=== PATIENT | male | born 1965 | race Caucasian/White ===

== ENCOUNTER 2016-03-12 15:28 | Emergency (ER) | payer OTHER, MEDICAID ==
[~2016-03-12] VITALS: Ht 190.5 cm; Wt 108.9 kg
[~2016-03-12 15:28] MED LIST: ALPR1TAB2; ASPI-231 PO; LEVE500T22 PO; MECL12.554 PO; MET50T PO; METF-312 PO; NOR10T PO; PANT40TA2 PO; ZOLP10TA PO
[2016-03-12 15:42] VITALS: BP 135/79
[2016-03-12 16:15] LABS: Basophils # (auto) 0.1 uL; Eosinophils # (auto) 0.3 uL; Eosinophils % (auto) 4.2 % (0.0-7.0); Hemoglobin 12.9 g/dL (13.5-17.5); Lymphocytes # (auto) 1.5 uL; Lymphocytes % (auto) 24.4 % (10.0-50.0); Mean Corpuscular Hemoglobin 27.4 pg (28.0-32.0); Mean Corpuscular Hgb Conc. 32.2 g/dL (32.0-36.0); Mean Corpuscular Volume 85.1 fL (80.0-100.0); Mean Platelet Volume 7.9 fL (7.4-10.4); Monocytes # (auto) 0.5 uL; Monocytes % (auto) 7.9 % (0.0-12.0); Neutrophils # (auto) 3.9 uL; Neutrophils % (auto) 62.5 % (37.0-80.0); Platelet Count (auto) 414 10^3/uL (140-450); Red Cell Distribution Width 16.5 % (11.6-16.0); White Blood Cell 6.3 10^3/uL (4.4-10.8)
[2016-03-12 16:22] LABS: Albumin 3.6 g/dL (3.4-5.0); BUN/Creatinine Ratio 11.4; Calcium 8.3 mg/dL (8.5-10.1); Potassium 4.4 mmol/L (3.5-5.1)
[2016-03-12 16:25] LABS: Bilirubin, Total 0.2 mg/dL (0.2-1.0); Total Protein 8.9 g/dL (6.4-8.2)
== END 2016-03-12 22:30 | disposition left against medical advice (07) ==
LOC: EDUNIT# 15:30 → ER 15:30
DX: R51 Headache (principal); Z53.21 Procedure and treatment not carried out due to patient leaving prior to being seen by health care provider
CPT/HCPCS: 36415; 70450; 80053; 84484; 85025; 85049

== ENCOUNTER 2016-03-13 10:13 | Inpatient (IN) | payer OTHER, MEDICAID ==
[~2016-03-13] VITALS: Ht 190.5 cm; Wt 112.4 kg
[2016-03-13] MEDS ORDERED: ONDANSETRON HCL 4 MG/2 ML VIAL IV ONE ×2 (13:30→14:15)
[2016-03-13 14:10] LABS: Basophils # (auto) 0.1 uL; Basophils % (auto) 1.4 % (0.0-2.0); Eosinophils # (auto) 0.3 uL; Eosinophils % (auto) 5.2 % (0.0-7.0); Hematocrit 45.3 % (41.0-53.0); Hemoglobin 14.3 g/dL (13.5-17.5); Lymphocytes # (auto) 1.7 uL; Lymphocytes % (auto) 26.5 % (10.0-50.0); Mean Corpuscular Hemoglobin 27.3 pg (28.0-32.0); Mean Corpuscular Hgb Conc. 31.5 g/dL (32.0-36.0); Mean Corpuscular Volume 86.5 fL (80.0-100.0); Monocytes # (auto) 0.5 uL; Monocytes % (auto) 7.4 % (0.0-12.0); Neutrophils # (auto) 3.7 uL; Neutrophils % (auto) 59.5 % (37.0-80.0); Platelet Count (auto) 388 10^3/uL (140-450); Red Cell Distribution Width 15.1 % (11.6-16.0); White Blood Cell 6.3 10^3/uL (4.4-10.8)
[2016-03-13] MEDS ORDERED: MORPHINE SULFATE 4 MG/ML SYRG IV ONE (14:15)
[2016-03-13 14:58] LABS: Albumin 4.2 g/dL (3.4-5.0); BUN/Creatinine Ratio 16.9; Bilirubin, Total 0.3 mg/dL (0.2-1.0); Calcium 9.3 mg/dL (8.5-10.1); Magnesium 2.4 mg/dL (1.6-2.6); Potassium 4.8 mmol/L (3.5-5.1); Total Protein 9.8 g/dL (6.4-8.2)
[2016-03-13] MEDS ORDERED: MORPHINE SULF INJ 2 MG/ML SYRINGE 1ML IV PRN (16:00)
[2016-03-13] MEDS ORDERED: ACETAMINOPHEN 500 MG TAB PO PRN (16:00)
[2016-03-13] MEDS ORDERED: DEXTROSE (50%) 50ML SYRG IV PRN (16:00)
[2016-03-13] MEDS ORDERED: HYDROcodone-ACET 5/325MG TAB PO PRN (16:00)
[2016-03-13] MEDS ORDERED: SODIUM CHLORIDE 0.9% 1,000 ML IV ONE (16:00)
[2016-03-13] MEDS ORDERED: ALBUTEROL SULF 2.5 MG/0.5ML(0.5%) NEB SOLN NEB PRN (16:00)
[2016-03-13] MEDS ORDERED: LORazepam 0.5 MG TAB PO PRN (16:00)
[2016-03-13] MEDS ORDERED: TEMAZEPAM 15 MG CAP PO PRN (16:00)
[2016-03-13] MEDS ORDERED: LACTULOSE 20Gm/30ML SOLN PO PRN (16:00)
[2016-03-13] MEDS ORDERED: NITROGLYCERIN 0.4 MG SL TAB SL PRN (16:00)
[2016-03-13 16:33] LABS: INR 1.2 (0.9-1.15); Partial Thromboplastin Time 28.3 sec (22.64-33.71); Prothrombin Time 12.4 sec (9.37-12.3)
[2016-03-13 16:42] LABS: Temperature: 22.5 C (20.0-25.0)
[2016-03-13] MEDS: ACCU-CHEK COMFORT CURVE STRIP VI SCH ×2 (17:00→22:10)
[2016-03-13] MEDS: SODIUM CHLORIDE 0.9% 1,000 ML IV SCH (17:00)
[2016-03-13] MEDS: InsuLIN REG 1unit/0.01ml Soln (100units/ml) SC SCH ×2 (17:00→22:19)
[2016-03-13 18:00] VITALS: BP 123/72
[2016-03-13] MEDS: MORPHINE SULF INJ 2 MG/ML SYRINGE 1ML IV PRN (18:44)
[2016-03-13] MEDS: PROMETHAZINE HCL 25 MG/ML 1ML IV PRN (18:48)
[2016-03-13 21:23] VITALS: BP 123/72
[2016-03-13 21:48] VITALS: BP 112/59
[2016-03-13] MEDS ORDERED: LACOSAMIDE 150 MG PO SCH (22:00)
[2016-03-13] MEDS: AMITRIPTYLINE HCL 25 MG TAB PO SCH (22:20)
[2016-03-13] MEDS: traZODone HCL 50 MG TAB PO SCH (22:21)
[2016-03-13] MEDS: DILTIAZEM HCL 120MG ER CAP PO SCH (23:44)
[2016-03-13] MEDS: LEVETIRACETAM 500 MG TAB PO SCH (23:45)
[2016-03-13] MEDS: OXYCODONE W/ ACETAMINOPHEN 5/325MG TABLET PO SCH (23:45)
[2016-03-13] MEDS: CARVEDILOL 12.5 MG TAB PO SCH (23:46)
[2016-03-13] MEDS: hydrALAZINE HCL 25 MG TAB PO SCH (23:47)
[2016-03-13] MEDS: PREGABALIN 25 MG CAP PO SCH (23:47)
[2016-03-14] MEDS: SODIUM CHLORIDE 0.9% 1,000 ML IV SCH ×3 (01:07→17:14)
[2016-03-14 05:40] VITALS: BP 104/63
[2016-03-14] MEDS: PREGABALIN 25 MG CAP PO SCH ×3 (06:00→22:40)
[2016-03-14] MEDS: InsuLIN REG 1unit/0.01ml Soln (100units/ml) SC SCH ×4 (06:11→22:42)
[2016-03-14] MEDS: OXYCODONE W/ ACETAMINOPHEN 5/325MG TABLET PO SCH ×3 (06:19→22:41)
[2016-03-14] MEDS: hydrALAZINE HCL 25 MG TAB PO SCH ×3 (06:20→22:33)
[2016-03-14 06:36] LABS: Basophils # (auto) 0 uL; Basophils % (auto) 0.4 % (0.0-2.0); Eosinophils # (auto) 0.3 uL; Eosinophils % (auto) 5.5 % (0.0-7.0); Hematocrit 37.1 % (41.0-53.0); Hemoglobin 12.2 g/dL (13.5-17.5); Lymphocytes % (auto) 31.6 % (10.0-50.0); Mean Corpuscular Hemoglobin 28.3 pg (28.0-32.0); Mean Corpuscular Hgb Conc. 32.8 g/dL (32.0-36.0); Mean Corpuscular Volume 86.2 fL (80.0-100.0); Mean Platelet Volume 8.2 fL (7.4-10.4); Monocytes # (auto) 0.6 uL; Monocytes % (auto) 9.4 % (0.0-12.0); Neutrophils # (auto) 3.3 uL; Neutrophils % (auto) 53.1 % (37.0-80.0); Platelet Count (auto) 307 10^3/uL (140-450); Red Cell Distribution Width 14.8 % (11.6-16.0); White Blood Cell 6.2 10^3/uL (4.4-10.8)
[2016-03-14] MEDS: ACCU-CHEK COMFORT CURVE STRIP VI SCH ×4 (06:40→22:43)
[2016-03-14] MEDS: INSULIN DETEMIR(LEVEMIR) 1unit/0.01ml Soln (100units/ml) SC SCH (06:40)
[2016-03-14 06:50] LABS: Albumin 3.1 g/dL (3.4-5.0); BUN/Creatinine Ratio 22.7; Bilirubin, Total 0.2 mg/dL (0.2-1.0); Calcium 8.6 mg/dL (8.5-10.1); Potassium 4.3 mmol/L (3.5-5.1); Total Protein 7.3 g/dL (6.4-8.2)
[2016-03-14] MEDS ORDERED: INSULIN GLARGINE 45 UNIT SC SCH (07:00)
[2016-03-14 09:00] VITALS: BP 101/58
[2016-03-14] MEDS: MORPHINE SULF INJ 2 MG/ML SYRINGE 1ML IV PRN ×3 (09:30→18:23)
[2016-03-14] MEDS: PROMETHAZINE HCL 25 MG/ML 1ML IV PRN ×3 (09:30→18:23)
[2016-03-14] MEDS: DILTIAZEM HCL 120MG ER CAP PO SCH ×2 (10:00→22:33)
[2016-03-14] MEDS ORDERED: PATIENTS OWN MEDICATION (Benazepril Hcl 1 TAB) PO SCH ×2 (10:00)
[2016-03-14] MEDS ORDERED: LORazepam 2MG/ML-1ML VIAL IV PRN (11:15)
[2016-03-14] MEDS: BENAZEPRIL HCL 10 MG TAB PO SCH (11:57)
[2016-03-14] MEDS: CARVEDILOL 12.5 MG TAB PO SCH ×2 (11:57→22:00)
[2016-03-14] MEDS: LEVETIRACETAM 500 MG TAB PO SCH ×2 (11:57→22:35)
[2016-03-14] MEDS: LACOSAMIDE 50 MG TAB PO SCH ×2 (11:58→22:41)
[2016-03-14 13:42] VITALS: BP 113/68
[2016-03-14 16:59] VITALS: BP 112/62
[2016-03-14] MEDS ORDERED: GABAPENTIN 500 MG PO SCH (18:00)
[2016-03-14 22:00] VITALS: BP 119/65
[2016-03-14] MEDS ORDERED: GABAPENTIN 100 MG CAP PO SCH (22:00)
[2016-03-14] MEDS: AMITRIPTYLINE HCL 25 MG TAB PO SCH (22:00)
[2016-03-14] MEDS: traZODone HCL 50 MG TAB PO SCH (22:34)
[2016-03-14] MEDS: ALPRAZolam 0.5 MG TAB PO PRN (22:44)
[2016-03-15] MEDS: SODIUM CHLORIDE 0.9% 1,000 ML IV SCH ×2 (02:35→10:40)
[2016-03-15 05:00] VITALS: BP 103/57
[2016-03-15] MEDS: hydrALAZINE HCL 25 MG TAB PO SCH (06:00)
[2016-03-15] MEDS: INSULIN DETEMIR(LEVEMIR) 1unit/0.01ml Soln (100units/ml) SC SCH (06:15)
[2016-03-15] MEDS: ACCU-CHEK COMFORT CURVE STRIP VI SCH ×2 (06:15→12:16)
[2016-03-15] MEDS: InsuLIN REG 1unit/0.01ml Soln (100units/ml) SC SCH ×2 (06:16→11:30)
[2016-03-15] MEDS: OXYCODONE W/ ACETAMINOPHEN 5/325MG TABLET PO SCH (06:22)
[2016-03-15] MEDS: PREGABALIN 25 MG CAP PO SCH (06:22)
[2016-03-15] MEDS: PROMETHAZINE HCL 25 MG/ML 1ML IV PRN ×2 (08:01→12:17)
[2016-03-15] MEDS: MORPHINE SULF INJ 2 MG/ML SYRINGE 1ML IV PRN ×2 (08:01→12:17)
[2016-03-15 09:00] VITALS: BP 114/59
[2016-03-15] MEDS: DILTIAZEM HCL 120MG ER CAP PO SCH (10:00)
[2016-03-15] MEDS: BENAZEPRIL HCL 10 MG TAB PO SCH (10:38)
[2016-03-15] MEDS: ALPRAZolam 0.5 MG TAB PO PRN (10:38)
[2016-03-15] MEDS: LEVETIRACETAM 500 MG TAB PO SCH (10:38)
[2016-03-15] MEDS: LACOSAMIDE 50 MG TAB PO SCH (10:38)
[2016-03-15] MEDS: CARVEDILOL 12.5 MG TAB PO SCH (10:39)
[2016-03-15 13:00] VITALS: BP 118/58
== END 2016-03-15 13:55 | disposition home or self-care (01) | DRG 103 ==
LOC: ER 10:25 → TELE 10:26 → EDUNIT# 10:26 → TELE-CENTR 17:39 → CENTRAL 03-14 13:15
PROVIDERS: ADMIT Internal Medicine; ATTEND Internal Medicine
DX: R51 Headache (principal); E11.9 Type 2 diabetes mellitus without complications; E78.5 Hyperlipidemia, unspecified; E66.01 Morbid (severe) obesity due to excess calories; F41.9 Anxiety disorder, unspecified; G40.409 Other generalized epilepsy and epileptic syndromes, not intractable, without status epilepticus; I10 Essential (primary) hypertension; I67.2 Cerebral atherosclerosis; J44.9 Chronic obstructive pulmonary disease, unspecified; Z98.890 Other specified postprocedural states; Z86.69 Personal history of other diseases of the nervous system and sense organs; M10.9 Gout, unspecified; I25.2 Old myocardial infarction; Z82.49 Family history of ischemic heart disease and other diseases of the circulatory system; Z87.442 Personal history of urinary calculi; Z68.31 Body mass index [BMI] 31.0-31.9, adult
CPT/HCPCS: 36415; 70450; 71010; 80053; 80061; 82550; 82607; 82746; 82962; 83036; 83735; 84443; 84484; 85025; 85049; 85610; 85652; 85730; 87081; 93005; 96361; 96374; 96375; J1815; J2405

== ENCOUNTER 2016-04-09 14:42 | Emergency (ER) | payer OTHER, MEDICAID ==
[~2016-04-09] VITALS: Ht 190.5 cm; Wt 108.9 kg
[2016-04-09 15:04] VITALS: BP 109/71
[2016-04-09 15:23] LABS: Basophils # (auto) 0.1 uL; Eosinophils # (auto) 0.4 uL; Eosinophils % (auto) 5.7 % (0.0-7.0); Hematocrit 40.3 % (41.0-53.0); Hemoglobin 12.7 g/dL (13.5-17.5); Lymphocytes # (auto) 1.6 uL; Lymphocytes % (auto) 25.6 % (10.0-50.0); Mean Corpuscular Hemoglobin 27.1 pg (28.0-32.0); Mean Corpuscular Hgb Conc. 31.6 g/dL (32.0-36.0); Mean Platelet Volume 7.6 fL (7.4-10.4); Monocytes # (auto) 0.5 uL; Monocytes % (auto) 7.1 % (0.0-12.0); Neutrophils # (auto) 3.9 uL; Neutrophils % (auto) 60.6 % (37.0-80.0); Platelet Count (auto) 337 10^3/uL (140-450); Red Cell Distribution Width 16.6 % (11.6-16.0); White Blood Cell 6.4 10^3/uL (4.4-10.8)
[2016-04-09 15:43] LABS: Albumin 3.7 g/dL (3.4-5.0); BUN/Creatinine Ratio 13.4; Bilirubin, Total 0.3 mg/dL (0.2-1.0); Calcium 8.6 mg/dL (8.5-10.1); Potassium 4.3 mmol/L (3.5-5.1); Total Protein 8.4 g/dL (6.4-8.2)
[2016-04-13] MEDS ORDERED: KEP500T PO (11:10)
== END 2016-04-09 23:55 | disposition left against medical advice (07) ==
LOC: ER 14:42
DX: R56.9 Unspecified convulsions (principal); Z53.21 Procedure and treatment not carried out due to patient leaving prior to being seen by health care provider
CPT/HCPCS: 36415; 80053; 82962; 85025

== ENCOUNTER 2016-06-08 10:41 | Inpatient (IN) | payer OTHER, MEDICAID ==
[~2016-06-08] VITALS: Ht 188 cm; Wt 87.1 kg
[~2016-06-08 10:41] MED LIST changes: +KEP500T PO
[2016-06-08] MEDS ORDERED: SODIUM CHLORIDE 0.9% 1,000 ML IV ONE (11:03)
[2016-06-08] MEDS ORDERED: LEVETIRACETAM INJ 1,000 MG in SODIUM CHL 0.9% 100 ML IV ONE (11:15)
[2016-06-08 12:36] LABS: Basophils # (auto) 0 uL; Basophils % (auto) 0.4 % (0.0-2.0); Eosinophils # (auto) 0.2 uL; Eosinophils % (auto) 4.7 % (0.0-7.0); Hematocrit 36.9 % (41.0-53.0); Hemoglobin 12.1 g/dL (13.5-17.5); Lymphocytes # (auto) 1.3 uL; Mean Corpuscular Hgb Conc. 32.7 g/dL (32.0-36.0); Mean Corpuscular Volume 85.6 fL (80.0-100.0); Mean Platelet Volume 8.2 fL (7.4-10.4); Monocytes # (auto) 0.5 uL; Monocytes % (auto) 9.9 % (0.0-12.0); Neutrophils # (auto) 3.1 uL; Platelet Count (auto) 285 10^3/uL (140-450); Red Cell Distribution Width 15.8 % (11.6-16.0); White Blood Cell 5.2 10^3/uL (4.4-10.8)
[2016-06-08 12:52] LABS: Partial Thromboplastin Time 28.2 sec (22.64-33.71)
[2016-06-08 12:53] LABS: INR 1.26 (0.9-1.15); Prothrombin Time 13.6 sec (9.37-12.3)
[2016-06-08] MEDS ORDERED: KETOROLAC TROMETH 30 MG/ML 1ML VIAL IV ONE (13:00)
[2016-06-08] MEDS ORDERED: CARV25TA55 PO (13:10)
[2016-06-08] MEDS ORDERED: LACO150T PO (13:10)
[2016-06-08] MEDS ORDERED: LISI-646 PO (13:10)
[2016-06-08] MEDS ORDERED: GABA-494 PO (13:10)
[2016-06-08 13:13] LABS: B-Type Natriuretic Peptide 39.24 pg/mL (0-100)
[2016-06-08 13:17] LABS: Temperature: 22.9 C (20.0-25.0)
[2016-06-08 13:21] LABS: Albumin 3.2 g/dL (3.4-5.0); Alkaline Phosphatase 122 U/L (45-117); Anion Gap 11 (5-15); Aspartate Aminotransferase 29 U/L (15-37); BUN/Creatinine Ratio 19.2; Bilirubin, Total 0.5 mg/dL (0.2-1.0); Blood Urea Nitrogen 25 mg/dL (7-18); Calcium 8.9 mg/dL (8.5-10.1); Carbon Dioxide 22 mmol/L (21-32); Chloride 110 mmol/L (98-107); GFR African American 75 mL/min; GFR Non-African American 62 mL/min; Glucose 101 mg/dL (74-106); Magnesium 2.5 mg/dL (1.6-2.6); Potassium 4.3 mmol/L (3.5-5.1); Sodium 143 mmol/L (136-145); Total Protein 8.2 g/dL (6.4-8.2)
[2016-06-08] MEDS ORDERED: ALPRAZolam 0.5 MG TAB PO ONE (16:00)
[2016-06-08] MEDS ORDERED: HYDROmorphone HCL 2 MG/ML VL IV ONE (16:00)
[2016-06-08] MEDS ORDERED: DEXTROSE (50%) 50ML SYRG IV PRN (16:15)
[2016-06-08] MEDS ORDERED: ONDANSETRON HCL 4 MG/2 ML VIAL IV PRN (16:15)
[2016-06-08] MEDS ORDERED: MORPHINE SULF INJ 2 MG/ML SYRINGE 1ML IV PRN (16:15)
[2016-06-08] MEDS ORDERED: NITROGLYCERIN 0.4 MG SL TAB SL PRN (16:15)
[2016-06-08] MEDS ORDERED: ASPirin 81 mg TAB PO ONE (17:15)
[2016-06-08] MEDS ORDERED: GABAPENTIN 300 MG CAP PO ONE (17:15)
[2016-06-08] MEDS: InsuLIN REG 1unit/0.01ml Soln (100units/ml) SC SCH ×2 (17:53→22:00)
[2016-06-08] MEDS: ACCU-CHEK COMFORT CURVE STRIP VI SCH ×2 (17:54→22:24)
[2016-06-08] MEDS: MORPHINE SULF INJ 2 MG/ML SYRINGE 1ML IV PRN (20:08)
[2016-06-08] MEDS: LEVETIRACETAM 500 MG TAB PO SCH (22:20)
[2016-06-08] MEDS: CARVEDILOL 12.5 MG TAB PO SCH (22:20)
[2016-06-08] MEDS: GABAPENTIN 300 MG CAP PO SCH (22:21)
[2016-06-08] MEDS: LACOSAMIDE 50 MG TAB PO SCH (22:21)
[2016-06-08 22:52] VITALS: BP 125/68
[2016-06-08 23:09] VITALS: BP 125/68
[2016-06-08] MEDS: ALPRAZolam 0.5 MG TAB PO PRN (23:41)
[2016-06-09] MEDS: MORPHINE SULF INJ 2 MG/ML SYRINGE 1ML IV PRN ×5 (02:12→21:20)
[2016-06-09 05:06] VITALS: BP 114/59
[2016-06-09] MEDS: HYDROcodone-ACET 5/325MG TAB PO PRN ×2 (05:23→15:35)
[2016-06-09] MEDS: InsuLIN REG 1unit/0.01ml Soln (100units/ml) SC SCH ×4 (06:27→21:21)
[2016-06-09] MEDS: ACCU-CHEK COMFORT CURVE STRIP VI SCH ×4 (06:27→21:21)
[2016-06-09 09:00] VITALS: BP 131/76
[2016-06-09] MEDS: ASPirin 81 mg TAB PO SCH (10:32)
[2016-06-09] MEDS: CARVEDILOL 12.5 MG TAB PO SCH ×2 (10:33→21:21)
[2016-06-09] MEDS: LEVETIRACETAM 500 MG TAB PO SCH ×2 (10:33→21:21)
[2016-06-09] MEDS: LACOSAMIDE 50 MG TAB PO SCH ×2 (10:34→21:20)
[2016-06-09] MEDS: GABAPENTIN 300 MG CAP PO SCH ×2 (10:34→21:21)
[2016-06-09] MEDS: ALPRAZolam 0.5 MG TAB PO PRN ×2 (10:34→22:13)
[2016-06-09] MEDS ORDERED: MORPHINE SULFATE 4 MG/ML SYRG IV PRN (12:45)
[2016-06-09] MEDS: MUPIROCIN 2% OINT 22GM EACHNOSTRI SCH ×3 (13:07→21:21)
[2016-06-09 15:04] VITALS: BP 103/55
[2016-06-09 17:00] VITALS: BP 106/62
[2016-06-09] MEDS: Boost Glucose Control 8 Ounces PO SCH (17:04)
[2016-06-09] MEDS ORDERED: LORazepam 2MG/ML-1ML VIAL IV PRN (17:30)
[2016-06-09 20:00] VITALS: BP 136/82
[2016-06-09] MEDS: ZOLPIDEM TARTRATE 5 MG TAB PO PRN (22:13)
[2016-06-10] MEDS: MORPHINE SULF INJ 2 MG/ML SYRINGE 1ML IV PRN ×5 (01:05→18:55)
[2016-06-10 03:48] LABS: Urine RBC None Seen /hpf (0 - 3)
[2016-06-10 04:01] LABS: Urine Bilirubin Negative (Negative); Urine Blood Negative /uL (Negative); Urine Color Yellow (Yellow); Urine Glucose Normal (Normal); Urine Ketone Negative (Negative); Urine Nitrite Negative (Negative); Urine Sperm PRESENT /hpf (None Seen); Urine Squamous Epithelial Cell FEW /hpf (<5); Urine Urobilinogen Normal (Negative); Urine pH 5.5 (5.0-8.0)
[2016-06-10 05:12] VITALS: BP 128/78
[2016-06-10] MEDS: ALPRAZolam 0.5 MG TAB PO PRN ×2 (05:56→21:20)
[2016-06-10] MEDS: InsuLIN REG 1unit/0.01ml Soln (100units/ml) SC SCH ×4 (06:09→22:27)
[2016-06-10] MEDS: ACCU-CHEK COMFORT CURVE STRIP VI SCH ×4 (06:10→22:24)
[2016-06-10 07:11] LABS: Basophils # (auto) 0 uL; Basophils % (auto) 0.6 % (0.0-2.0); Eosinophils # (auto) 0.3 uL; Eosinophils % (auto) 6.1 % (0.0-7.0); Hematocrit 36.3 % (41.0-53.0); Lymphocytes # (auto) 1.4 uL; Lymphocytes % (auto) 27.7 % (10.0-50.0); Mean Corpuscular Hemoglobin 28.5 pg (28.0-32.0); Mean Corpuscular Hgb Conc. 33.2 g/dL (32.0-36.0); Mean Platelet Volume 8.3 fL (7.4-10.4); Monocytes # (auto) 0.6 uL; Monocytes % (auto) 11.5 % (0.0-12.0); Neutrophils # (auto) 2.8 uL; Neutrophils % (auto) 54.1 % (37.0-80.0); Platelet Count (auto) 295 10^3/uL (140-450); Red Cell Distribution Width 15.5 % (11.6-16.0); White Blood Cell 5.1 10^3/uL (4.4-10.8)
[2016-06-10 07:36] LABS: Albumin 3.1 g/dL (3.4-5.0); BUN/Creatinine Ratio 15.2; Bilirubin, Total 0.4 mg/dL (0.2-1.0); Calcium 8.5 mg/dL (8.5-10.1); Potassium 4.3 mmol/L (3.5-5.1); Total Protein 8.3 g/dL (6.4-8.2)
[2016-06-10] MEDS: Boost Glucose Control 8 Ounces PO SCH ×3 (08:00→18:00)
[2016-06-10 09:10] VITALS: BP 144/78
[2016-06-10] MEDS: LACOSAMIDE 50 MG TAB PO SCH ×2 (09:47→21:20)
[2016-06-10] MEDS: LEVETIRACETAM 500 MG TAB PO SCH ×2 (09:47→21:19)
[2016-06-10] MEDS: ASPirin 81 mg TAB PO SCH (09:48)
[2016-06-10] MEDS: GABAPENTIN 300 MG CAP PO SCH ×2 (09:48→21:20)
[2016-06-10] MEDS: CARVEDILOL 12.5 MG TAB PO SCH ×2 (09:48→21:19)
[2016-06-10] MEDS: MUPIROCIN 2% OINT 22GM EACHNOSTRI SCH ×2 (09:49→21:19)
[2016-06-10 12:32] VITALS: BP 140/72
[2016-06-10 16:42] VITALS: BP 132/70
[2016-06-10 20:00] VITALS: BP 126/74
[2016-06-10 21:05] VITALS: BP 126/74
[2016-06-10] MEDS: ZOLPIDEM TARTRATE 5 MG TAB PO PRN (21:20)
[2016-06-11] MEDS: MORPHINE SULF INJ 2 MG/ML SYRINGE 1ML IV PRN ×3 (00:44→15:19)
[2016-06-11 05:09] VITALS: BP 141/92
[2016-06-11] MEDS: InsuLIN REG 1unit/0.01ml Soln (100units/ml) SC SCH ×3 (06:16→17:00)
[2016-06-11] MEDS: ALPRAZolam 0.5 MG TAB PO PRN ×2 (06:16→16:36)
[2016-06-11] MEDS: ACCU-CHEK COMFORT CURVE STRIP VI SCH ×3 (06:16→17:00)
[2016-06-11] MEDS: Boost Glucose Control 8 Ounces PO SCH ×3 (08:00→18:18)
[2016-06-11 08:38] VITALS: BP 151/90
[2016-06-11] MEDS: LEVETIRACETAM 500 MG TAB PO SCH (10:27)
[2016-06-11] MEDS: GABAPENTIN 300 MG CAP PO SCH (10:27)
[2016-06-11] MEDS: CARVEDILOL 12.5 MG TAB PO SCH (10:28)
[2016-06-11] MEDS: ASPirin 81 mg TAB PO SCH (10:28)
[2016-06-11] MEDS: LACOSAMIDE 50 MG TAB PO SCH (10:28)
[2016-06-11] MEDS: MUPIROCIN 2% OINT 22GM EACHNOSTRI SCH (10:29)
[2016-06-11 12:54] VITALS: BP 141/98
[2016-06-11 17:11] VITALS: BP 127/71
== END 2016-06-11 18:15 | DRG 101 ==
LOC: EDBD 10:41 → ER 10:42 → TELE 10:43 → EAST 19:32 → TELE-EAST 06-10 00:16
PROVIDERS: ADMIT Internal Medicine; ATTEND Internal Medicine
DX: G40.409 Other generalized epilepsy and epileptic syndromes, not intractable, without status epilepticus (principal); J44.1 Chronic obstructive pulmonary disease with (acute) exacerbation; F41.9 Anxiety disorder, unspecified; R32 Unspecified urinary incontinence; E11.42 Type 2 diabetes mellitus with diabetic polyneuropathy; R26.89 Other abnormalities of gait and mobility; I50.9 Heart failure, unspecified; I11.0 Hypertensive heart disease with heart failure; E78.5 Hyperlipidemia, unspecified; Z82.49 Family history of ischemic heart disease and other diseases of the circulatory system; Z83.3 Family history of diabetes mellitus; Z80.3 Family history of malignant neoplasm of breast; Z90.49 Acquired absence of other specified parts of digestive tract; Z88.2 Allergy status to sulfonamides; Z88.8 Allergy status to other drugs, medicaments and biological substances
CPT/HCPCS: 36415; 70450; 71010; 80053; 80320; 81001; 82962; 83735; 83880; 84484; 85025; 85610; 85730; 87081; 93005; 96365; 96375; 97001; 99291; G0434; J1815; J1885

== ENCOUNTER 2016-08-01 08:41 | Inpatient (IN) | payer OTHER, MEDICAID ==
[~2016-08-01] VITALS: Ht 182.9 cm; Wt 112.0 kg
[~2016-08-01 08:41] MED LIST changes: +BACL10TA PO; +CARV25TA55 PO; +GABA-494 PO; +LACO150T PO; -LEVE500T22 PO; +LISI-646 PO; -MECL12.554 PO; -METF-312 PO; +METF-370 PO; -PANT40TA2 PO
[2016-08-01 09:19] LABS: Basophils # (auto) 0 uL; Basophils % (auto) 0.4 % (0.0-2.0); Eosinophils # (auto) 0.3 uL; Eosinophils % (auto) 2.6 % (0.0-7.0); Hemoglobin 13.3 g/dL (13.5-17.5); Lymphocytes # (auto) 1.8 uL; Lymphocytes % (auto) 15.4 % (10.0-50.0); Mean Corpuscular Hemoglobin 29.9 pg (28.0-32.0); Mean Corpuscular Hgb Conc. 33.3 g/dL (32.0-36.0); Mean Corpuscular Volume 89.5 fL (80.0-100.0); Mean Platelet Volume 8.3 fL (7.4-10.4); Monocytes # (auto) 1.2 uL; Monocytes % (auto) 10.5 % (0.0-12.0); Neutrophils # (auto) 8.4 uL; Neutrophils % (auto) 71.1 % (37.0-80.0); Platelet Count (auto) 346 10^3/uL (140-450); Red Cell Distribution Width 16.7 % (11.6-16.0); White Blood Cell 11.8 10^3/uL (4.4-10.8)
[2016-08-01 09:45] LABS: Albumin 3.2 g/dL (3.4-5.0); Alkaline Phosphatase 132 U/L (45-117); Anion Gap 12 (5-15); Aspartate Aminotransferase 16 U/L (15-37); BUN/Creatinine Ratio 8.4; Bilirubin, Total 0.7 mg/dL (0.2-1.0); Blood Urea Nitrogen 46 mg/dL (7-18); Calcium 8.2 mg/dL (8.5-10.1); Carbon Dioxide 20 mmol/L (21-32); Chloride 105 mmol/L (98-107); GFR African American 14 mL/min; GFR Non-African American 12 mL/min; Glucose 118 mg/dL (74-106); Potassium 4.8 mmol/L (3.5-5.1); Sodium 137 mmol/L (136-145); Total Protein 7.8 g/dL (6.4-8.2)
[2016-08-01] MEDS ORDERED: LORazepam 2MG/ML-1ML VIAL IV ONE ×2 (09:45→10:15)
[2016-08-01] MEDS ORDERED: metroNIDAZOLE 500MG/100ML 100 ML IV ONE (10:00)
[2016-08-01] MEDS ORDERED: cefTRIAXone 1GM/50ML D5W 50 ML IV ONE (10:00)
[2016-08-01 10:01] LABS: Urine Blood Negative /uL (Negative); Urine Ca Oxalate Crystal FEW (None Seen); Urine Color Yellow (Yellow); Urine Glucose Normal (Normal); Urine Ketone Negative (Negative); Urine Nitrite Negative (Negative); Urine RBC 2 /hpf (0 - 3)
[2016-08-01] MEDS ORDERED: SODIUM CHLORIDE 0.9% 1,000 ML IV ONE ×4 (10:13→19:45)
[2016-08-01 10:14] LABS: Urine Bilirubin Negative (Negative)
[2016-08-01] MEDS ORDERED: SODIUM CHLORIDE 0.9% 500 ML IV ONE (11:45)
[2016-08-01] MEDS ORDERED: ACETAMINOPHEN 650 MG RECT SUPP PR ONE (13:15)
[2016-08-01] MEDS ORDERED: ACETAMINOPHEN 500 MG TAB PO PRN (16:00)
[2016-08-01] MEDS ORDERED: LORazepam 2MG/ML-1ML VIAL IV PRN (16:00)
[2016-08-01] MEDS ORDERED: BACLOFEN 10 MG TAB PO PRN (16:00)
[2016-08-01] MEDS ORDERED: DEXTROSE (50%) 50ML SYRG IV PRN (16:00)
[2016-08-01] MEDS ORDERED: MORPHINE SULF INJ 2 MG/ML SYRINGE 1ML IV PRN ×2 (16:00)
[2016-08-01] MEDS ORDERED: LACTULOSE 20Gm/30ML SOLN PO PRN (16:00)
[2016-08-01] MEDS ORDERED: PANTOPRAZOLE SODIUM 40 MG/10 ML VIAL IV ONE (16:00)
[2016-08-01] MEDS ORDERED: NITROGLYCERIN 0.4 MG SL TAB SL PRN (16:00)
[2016-08-01] MEDS ORDERED: PROMETHAZINE HCL 25 MG/ML 1ML IV PRN (16:00)
[2016-08-01] MEDS ORDERED: PIPERACILLIN-TAZOB 2.25GM 50 ML IV ONE (16:00)
[2016-08-01] MEDS ORDERED: ZOLPIDEM TARTRATE 5 MG TAB PO PRN (16:15)
[2016-08-01] MEDS: SODIUM CHLORIDE 0.9% 1,000 ML IV SCH ×2 (16:30→22:32)
[2016-08-01] MEDS: PIPERACILLIN-TAZOB 2.25GM 50 ML IV SCH (17:30)
[2016-08-01] MEDS ORDERED: ENOXAPARIN SOD 30 MG/0.3 ML SYRINGE SC ONE (18:00)
[2016-08-01] MEDS: CARVEDILOL 12.5 MG TAB PO SCH (18:00)
[2016-08-01] MEDS ORDERED: ASPirin-EC 81 mg tab PO ONE (18:00)
[2016-08-01 18:30] LABS: Partial Thromboplastin Time 25.4 sec (22.64-33.71)
[2016-08-01 18:33] LABS: INR 1.38 (0.9-1.15); Prothrombin Time 15.1 sec (9.37-12.3)
[2016-08-01] MEDS: InsuLIN REG 1unit/0.01ml Soln (100units/ml) SC SCH ×2 (18:46→23:57)
[2016-08-01] MEDS: ACCU-CHEK COMFORT CURVE STRIP VI SCH ×2 (18:47→23:58)
[2016-08-01] MEDS ORDERED: NOREPINEPHRINE BITARTRATE 250 ML IV ONE (19:26)
[2016-08-01] MEDS: NOREPINEPHRINE BITARTRATE 250 ML IV SCH (19:40)
[2016-08-01] MEDS: LACOSAMIDE 50 MG TAB PO SCH (22:00)
[2016-08-01] MEDS: LEVETIRACETAM 500 MG TAB PO SCH (22:19)
[2016-08-01] MEDS: GABAPENTIN 300 MG CAP PO SCH (22:19)
[2016-08-02] VITALS (12 sets, daily range): BP systolic 86–119; BP diastolic 49–66
[2016-08-02] MEDS ORDERED: FUROSEMIDE 40 MG/4 ML VIAL ONE (01:14)
[2016-08-02] MEDS ORDERED: ALBUTEROL SULF 2.5 MG/0.5ML(0.5%) NEB SOLN NEB PRN (01:15)
[2016-08-02] MEDS ORDERED: FUROSEMIDE 40 MG/4 ML VIAL IV ONE (01:15)
[2016-08-02] MEDS ORDERED: IPRATROPIUM BROM 0.5 MG/2.5ML INH SOL NEB PRN (01:15)
[2016-08-02] MEDS: PIPERACILLIN-TAZOB 2.25GM 50 ML IV SCH ×3 (01:50→18:00)
[2016-08-02] MEDS: ALPRAZolam 0.5 MG TAB PO PRN (02:40)
[2016-08-02 05:04] LABS: Basophils # (auto) 0 uL; Basophils % (auto) 0.2 % (0.0-2.0); Eosinophils # (auto) 0.2 uL; Eosinophils % (auto) 3.2 % (0.0-7.0); Lymphocytes # (auto) 1.1 uL; Lymphocytes % (auto) 13.6 % (10.0-50.0); Mean Corpuscular Hemoglobin 30.1 pg (28.0-32.0); Mean Corpuscular Hgb Conc. 33.4 g/dL (32.0-36.0); Mean Corpuscular Volume 90.3 fL (80.0-100.0); Mean Platelet Volume 8.4 fL (7.4-10.4); Monocytes # (auto) 0.9 uL; Monocytes % (auto) 12.1 % (0.0-12.0); Neutrophils # (auto) 5.5 uL; Neutrophils % (auto) 70.9 % (37.0-80.0); Platelet Count (auto) 278 10^3/uL (140-450); Red Cell Distribution Width 15.7 % (11.6-16.0); White Blood Cell 7.8 10^3/uL (4.4-10.8)
[2016-08-02] MEDS: SODIUM CHLORIDE 0.9% 1,000 ML IV SCH (05:12)
[2016-08-02 05:31] LABS: Albumin 2.5 g/dL (3.4-5.0); BUN/Creatinine Ratio 14.7; Bilirubin, Total 0.6 mg/dL (0.2-1.0); Calcium 7.8 mg/dL (8.5-10.1); Potassium 4.5 mmol/L (3.5-5.1); Total Protein 6.9 g/dL (6.4-8.2)
[2016-08-02] MEDS: InsuLIN REG 1unit/0.01ml Soln (100units/ml) SC SCH ×3 (06:00→18:00)
[2016-08-02] MEDS: ACCU-CHEK COMFORT CURVE STRIP VI SCH ×3 (06:01→18:13)
[2016-08-02] MEDS: CARVEDILOL 12.5 MG TAB PO SCH (08:00)
[2016-08-02] MEDS: LEVETIRACETAM 500 MG TAB PO SCH ×2 (11:05→21:30)
[2016-08-02] MEDS: PANTOPRAZOLE SODIUM 40 MG/10 ML VIAL IV SCH (11:05)
[2016-08-02] MEDS: ENOXAPARIN SOD 30 MG/0.3 ML SYRINGE SC SCH (11:05)
[2016-08-02] MEDS: GABAPENTIN 300 MG CAP PO SCH (11:05)
[2016-08-02] MEDS: ASPirin-EC 81 mg tab PO SCH (11:05)
[2016-08-02] MEDS: LACOSAMIDE 50 MG TAB PO SCH ×2 (11:06→21:29)
[2016-08-02] MEDS ORDERED: GABAPENTIN 300 MG CAP PO ONE (11:15)
[2016-08-02] MEDS: HYDROcodone-ACET 5/325MG TAB PO PRN ×2 (12:48→19:50)
[2016-08-02] MEDS ORDERED: GABAPENTIN 300 MG CAP PO SCH (14:00)
[2016-08-02] MEDS ORDERED: FAM20T PO (15:22)
[2016-08-02] MEDS ORDERED: LORA1TAB12 PO (15:22)
[2016-08-02] MEDS ORDERED: TEMA15CA91 PO (15:22)
[2016-08-02] MEDS ORDERED: LACO150T PO (15:22)
[2016-08-02] MEDS: GABAPENTIN 400 MG CAP PO SCH ×2 (15:46→21:34)
[2016-08-02] MEDS ORDERED: SODIUM CHLORIDE 0.9% 1,000 ML IV SCH (15:52)
[2016-08-02] MEDS ORDERED: VANCOMYCIN 1GM/250ML D5W 250 ML IV ONE (17:45)
[2016-08-02] MEDS: CARVEDILOL 3.125 MG TAB PO SCH (18:00)
[2016-08-02] MEDS: TEMAZEPAM 15 MG CAP PO PRN (21:21)
[2016-08-03] MEDS: PIPERACILLIN-TAZOB 2.25GM 50 ML IV SCH ×2 (01:26→09:21)
[2016-08-03] MEDS: HYDROcodone-ACET 5/325MG TAB PO PRN ×2 (04:32→12:00)
[2016-08-03 04:59] LABS: Basophils # (auto) 0 uL; Basophils % (auto) 0.2 % (0.0-2.0); Eosinophils # (auto) 0.5 uL; Eosinophils % (auto) 8.1 % (0.0-7.0); Hematocrit 36.4 % (41.0-53.0); Hemoglobin 12.1 g/dL (13.5-17.5); Lymphocytes % (auto) 18.2 % (10.0-50.0); Mean Corpuscular Hemoglobin 29.8 pg (28.0-32.0); Mean Corpuscular Hgb Conc. 33.2 g/dL (32.0-36.0); Mean Corpuscular Volume 89.8 fL (80.0-100.0); Mean Platelet Volume 8.5 fL (7.4-10.4); Monocytes # (auto) 0.8 uL; Monocytes % (auto) 13.5 % (0.0-12.0); Neutrophils # (auto) 3.4 uL; Platelet Count (auto) 283 10^3/uL (140-450); Red Cell Distribution Width 15.8 % (11.6-16.0); White Blood Cell 5.7 10^3/uL (4.4-10.8)
[2016-08-03 05:15] LABS: BUN/Creatinine Ratio 17.2; Calcium 8.3 mg/dL (8.5-10.1); Potassium 4.3 mmol/L (3.5-5.1)
[2016-08-03] MEDS: InsuLIN REG 1unit/0.01ml Soln (100units/ml) SC SCH ×5 (06:00→23:19)
[2016-08-03] MEDS: GABAPENTIN 400 MG CAP PO SCH ×3 (06:00→21:38)
[2016-08-03] MEDS: ACCU-CHEK COMFORT CURVE STRIP VI SCH ×5 (06:00→23:19)
[2016-08-03 08:00] VITALS: BP 127/80
[2016-08-03] MEDS: NOREPINEPHRINE BITARTRATE 250 ML IV SCH (08:19)
[2016-08-03] MEDS: CARVEDILOL 3.125 MG TAB PO SCH ×2 (09:21→17:48)
[2016-08-03] MEDS: ASPirin-EC 81 mg tab PO SCH (10:45)
[2016-08-03] MEDS: ENOXAPARIN SOD 30 MG/0.3 ML SYRINGE SC SCH (10:45)
[2016-08-03] MEDS: LEVETIRACETAM 500 MG TAB PO SCH ×2 (10:45→21:38)
[2016-08-03] MEDS: PANTOPRAZOLE SODIUM 40 MG/10 ML VIAL IV SCH (10:45)
[2016-08-03 12:13] VITALS: BP 122/67
[2016-08-03] MEDS: LACOSAMIDE 50 MG TAB PO SCH ×2 (12:14→21:39)
[2016-08-03] MEDS: MUPIROCIN 2% OINT 22GM EACHNOSTRI SCH ×2 (15:18→21:38)
[2016-08-03 16:00] VITALS: BP 115/70
[2016-08-03] MEDS: HYDROcodone-ACET 10/325MG TAB PO PRN ×2 (16:25→20:45)
[2016-08-03] MEDS: ALPRAZolam 0.5 MG TAB PO PRN (17:51)
[2016-08-03 19:49] VITALS: BP 126/72
[2016-08-03] MEDS: TEMAZEPAM 15 MG CAP PO PRN (21:39)
[2016-08-03 23:20] VITALS: BP 116/67
[2016-08-04] MEDS: HYDROcodone-ACET 10/325MG TAB PO PRN ×4 (00:46→13:30)
[2016-08-04 03:33] VITALS: BP 123/77
[2016-08-04] MEDS: GABAPENTIN 400 MG CAP PO SCH (05:26)
[2016-08-04] MEDS: ACCU-CHEK COMFORT CURVE STRIP VI SCH ×2 (05:27→12:00)
[2016-08-04] MEDS: InsuLIN REG 1unit/0.01ml Soln (100units/ml) SC SCH ×2 (05:44→12:50)
[2016-08-04 08:00] VITALS: BP 133/80
[2016-08-04] MEDS: CARVEDILOL 3.125 MG TAB PO SCH (08:00)
[2016-08-04] MEDS: ASPirin-EC 81 mg tab PO SCH (09:34)
[2016-08-04] MEDS: PANTOPRAZOLE SODIUM 40 MG/10 ML VIAL IV SCH (09:34)
[2016-08-04] MEDS: LEVETIRACETAM 500 MG TAB PO SCH (09:34)
[2016-08-04] MEDS: LACOSAMIDE 50 MG TAB PO SCH (09:35)
[2016-08-04] MEDS: MUPIROCIN 2% OINT 22GM EACHNOSTRI SCH (09:37)
[2016-08-04] MEDS ORDERED: ENOXAPARIN SOD 40 MG/0.4 ML SYRINGE SC SCH (10:00)
[2016-08-04 11:50] VITALS: BP 140/81
== END 2016-08-04 13:45 | DRG 100 ==
LOC: ER 08:41 → EDBD 08:41 → TELE 08:42 → DOU IN ICU 08-02 00:37
PROVIDERS: ADMIT Internal Medicine; ATTEND Internal Medicine
DX: G40.909 Epilepsy, unspecified, not intractable, without status epilepticus (principal); N17.0 Acute kidney failure with tubular necrosis; I13.0 Hypertensive heart and chronic kidney disease with heart failure and stage 1 through stage 4 chronic kidney disease, or unspecified chronic kidney disease; E44.1 Mild protein-calorie malnutrition; G91.9 Hydrocephalus, unspecified; K21.9 Gastro-esophageal reflux disease without esophagitis; J44.9 Chronic obstructive pulmonary disease, unspecified; I50.9 Heart failure, unspecified; N18.2 Chronic kidney disease, stage 2 (mild); E11.21 Type 2 diabetes mellitus with diabetic nephropathy; F41.9 Anxiety disorder, unspecified; G89.29 Other chronic pain; I95.9 Hypotension, unspecified; E86.1 Hypovolemia; E11.42 Type 2 diabetes mellitus with diabetic polyneuropathy; E11.22 Type 2 diabetes mellitus with diabetic chronic kidney disease; Z80.3 Family history of malignant neoplasm of breast; Z82.49 Family history of ischemic heart disease and other diseases of the circulatory system; Z83.3 Family history of diabetes mellitus; Z68.33 Body mass index [BMI] 33.0-33.9, adult; Z90.49 Acquired absence of other specified parts of digestive tract; Z88.6 Allergy status to analgesic agent; Z88.2 Allergy status to sulfonamides; Z88.8 Allergy status to other drugs, medicaments and biological substances
CPT/HCPCS: 36415; 51702; 70450; 71010; 74176; 76775; 80048; 80053; 80061; 80307; 80320; 81001; 82150; 82550; 82570; 82962; 83036; 83605; 83690; 83735; 84156; 84300; 84443; 84484; 85025; 85610; 85652; 85730; 86141; 87040; 87081; 87086; 87493; 93005; 94640; 94761; 95819; 96361; 96365; 96367; 96372; 96375; 97163; C9113; J0696; J1815; J2543; J3490

== ENCOUNTER 2017-01-03 11:20 | Emergency (ER) | payer MEDICARE, MEDICAID ==
[~2017-01-03] VITALS: Ht 190.5 cm; Wt 104.3 kg
[~2017-01-03 11:20] MED LIST changes: +FAM20T PO; +LORA1TAB12 PO; -MET50T PO; +TEMA15CA91 PO
[2017-01-03] MEDS ORDERED: LEVETIRACETAM INJ 500 MG in SODIUM CHL 0.9% 100 ML IV ONE (12:00)
[2017-01-03] MEDS ORDERED: LORazepam 2MG/ML-1ML VIAL IV ONE (12:00)
[2017-01-03] MEDS ORDERED: SODIUM CHL 0.9% IV ONE (12:15)
[2017-01-03] MEDS ORDERED: LEVETIRACETAM IV ONE (12:15)
[2017-01-03 12:38] LABS: Basophils # (auto) 0 uL; Basophils % (auto) 0.6 % (0.0-2.0); Eosinophils # (auto) 0.3 uL; Eosinophils % (auto) 5.4 % (0.0-7.0); Hematocrit 36.5 % (41.0-53.0); Hemoglobin 12.4 g/dL (13.5-17.5); Lymphocytes # (auto) 1.2 uL; Lymphocytes % (auto) 21.4 % (10.0-50.0); Mean Corpuscular Hemoglobin 30.6 pg (28.0-32.0); Mean Corpuscular Hgb Conc. 33.9 g/dL (32.0-36.0); Mean Corpuscular Volume 90.2 fL (80.0-100.0); Monocytes # (auto) 0.7 uL; Monocytes % (auto) 12.7 % (0.0-12.0); Neutrophils # (auto) 3.2 uL; Neutrophils % (auto) 59.9 % (37.0-80.0); Nucleated Red Blood Cells % 0.1 %; Platelet Count (auto) 234 10^3/uL (140-450); Red Cell Distribution Width 15.1 % (11.8-14.3); White Blood Cell 5.4 10^3/uL (4.4-10.8)
[2017-01-03 13:57] LABS: Albumin 3.4 g/dL (3.4-5.0); BUN/Creatinine Ratio 20.6; Bilirubin, Total 0.5 mg/dL (0.2-1.0); Calcium 8.9 mg/dL (8.5-10.1); Magnesium 2.2 mg/dL (1.6-2.6); Potassium 4.2 mmol/L (3.5-5.1); Total Protein 8.5 g/dL (6.4-8.2)
[2017-01-03 14:09] VITALS: BP 111/59
== END 2017-01-03 15:12 | disposition home or self-care (01) ==
LOC: EDBD 11:20 → ER 11:20
DX: G40.909 Epilepsy, unspecified, not intractable, without status epilepticus (principal); Z86.73 Personal history of transient ischemic attack (TIA), and cerebral infarction without residual deficits; E11.22 Type 2 diabetes mellitus with diabetic chronic kidney disease; I12.9 Hypertensive chronic kidney disease with stage 1 through stage 4 chronic kidney disease, or unspecified chronic kidney disease; N18.9 Chronic kidney disease, unspecified; Z90.49 Acquired absence of other specified parts of digestive tract
CPT/HCPCS: 36415; 70450; 80053; 83735; 85025; 94761; 96374; 99285; J1953

== ENCOUNTER 2017-05-03 00:14 | Inpatient (IN) | payer MEDICARE, MEDICAID ==
[~2017-05-03] VITALS: Ht 200.7 cm; Wt 131.7 kg
[~2017-05-03 00:14] MED LIST changes: -ALPR1TAB2; -FAM20T PO; -GABA-494 PO; +GABA100C9 PO; +MUPI2OIN10 TOP; +NITR-52 PO; +PANT40T PO; +SUCR1SUS10 PO
[2017-05-03] MEDS ORDERED: SODIUM CHLORIDE 0.9% 1,000 ML IVB ONE (00:34)
[2017-05-03] MEDS ORDERED: LEVETIRACETAM INJ 500 MG in D5W 5% 100 ML IV ONE (00:45)
[2017-05-03] MEDS ORDERED: LEVETIRACETAM INJ 1,000 MG in D5W 5% 100 ML IV ONE (00:45)
[2017-05-03] MEDS ORDERED: LEVETIRACETAM 500 MG/5ML INJ IV ONE (01:15)
[2017-05-03 01:22] LABS: Basophils # (auto) 0.1 uL; Eosinophils # (auto) 0.1 uL; Lymphocytes # (auto) 1.3 uL; Lymphocytes % (auto) 13.9 % (10.0-50.0); Monocytes # (auto) 0.9 uL; Platelet Count (auto) 331 10^3/uL (140-450)
[2017-05-03 01:24] LABS: Basophils % (auto) 0.9 % (0.0-2.0); Eosinophils % (auto) 1.6 % (0.0-7.0); Hematocrit 39.8 % (41.0-53.0); Hemoglobin 12.6 g/dL (13.5-17.5); Mean Corpuscular Hemoglobin 25.4 pg (28.0-32.0); Mean Corpuscular Hgb Conc. 31.6 g/dL (32.0-36.0); Mean Corpuscular Volume 80.2 fL (80.0-100.0); Monocytes % (auto) 9.5 % (0.0-12.0); Neutrophils # (auto) 6.8 uL; Neutrophils % (auto) 74.1 % (37.0-80.0); Nucleated Red Blood Cells % 0.7 %; Red Blood Cells 4.96 10^6/uL (4.5-5.90); Red Cell Distribution Width 17.3 % (11.8-14.3); White Blood Cell 9.2 10^3/uL (4.4-10.8)
[2017-05-03 01:32] LABS: Albumin 3.8 g/dL (3.4-5.0); BUN/Creatinine Ratio 17.9; Calcium 8.2 mg/dL (8.5-10.1); Potassium 4.6 mmol/L (3.5-5.1)
[2017-05-03 01:34] LABS: Bilirubin, Total 0.4 mg/dL (0.2-1.0); Total Protein 8.5 g/dL (6.4-8.2)
[2017-05-03 03:36] LABS: Urine Bacteria FEW /hpf (None Seen); Urine Blood Negative /uL (Negative); Urine Hyaline Cast FEW /lpf (0 - 2); Urine Specific Gravity 1.033 (1.001-1.035); Urine WBC 1 /hpf (0 - 3)
[2017-05-03] MEDS: SODIUM CHLORIDE 0.9% 1,000 ML IV SCH ×2 (04:35→16:28)
[2017-05-03] MEDS ORDERED: ONDANSETRON HCL 4 MG/2 ML VIAL IV PRN (04:45)
[2017-05-03] MEDS ORDERED: NITROGLYCERIN 0.4 MG SL TAB SL PRN (04:45)
[2017-05-03] MEDS ORDERED: ACETAMINOPHEN 325 MG TAB PO PRN (04:45)
[2017-05-03] MEDS ORDERED: DEXTROSE (50%) 50ML SYRG IV PRN (04:45)
[2017-05-03] MEDS ORDERED: SODIUM CHLORIDE 0.9% 500 ML IV ONE (04:45)
[2017-05-03] MEDS ORDERED: MORPHINE SULFATE 4 MG/ML SYR/VIAL IV PRN (04:45)
[2017-05-03] MEDS: InsuLIN REG 1unit/0.01ml Soln (100units/ml) SC SCH ×4 (06:00→23:13)
[2017-05-03] MEDS: ACCU-CHEK COMFORT CURVE STRIP VI SCH ×4 (06:09→23:14)
[2017-05-03] MEDS: GABAPENTIN 300 MG CAP PO SCH ×3 (06:14→21:34)
[2017-05-03] MEDS ORDERED: LACOSAMIDE 50 MG TAB PO SCH ×2 (06:30→10:00)
[2017-05-03] MEDS: HYDROcodone-ACET 5/325MG TAB PO PRN ×3 (06:41→23:32)
[2017-05-03] MEDS: SUCRALFATE 1 GM TAB PO SCH ×4 (06:41→21:35)
[2017-05-03 09:30] VITALS: BP 114/82
[2017-05-03] MEDS ORDERED: ENOXAPARIN SOD 30 MG/0.3 ML SYRINGE SC SCH (10:00)
[2017-05-03] MEDS: PANTOPRAZOLE 40 MG TAB PO SCH (10:18)
[2017-05-03] MEDS: LEVETIRACETAM 500 MG TAB PO SCH ×2 (10:19→21:34)
[2017-05-03] MEDS: LISINOPRIL 10 MG TAB PO SCH (10:21)
[2017-05-03] MEDS: CARVEDILOL 12.5 MG TAB PO SCH ×2 (10:21→21:36)
[2017-05-03 15:00] VITALS: BP 108/66
[2017-05-03 20:00] VITALS: BP 105/59
[2017-05-03] MEDS: TEMAZEPAM 15 MG CAP PO PRN (21:35)
[2017-05-03] MEDS: LACOSAMIDE 50 MG TAB PO SCH (21:35)
[2017-05-03 21:57] VITALS: BP 105/59
[2017-05-03] MEDS: ALPRAZolam 0.5 MG TAB PO PRN (23:04)
[2017-05-04] VITALS (7 sets, daily range): BP systolic 105–141; BP diastolic 58–85
[2017-05-04] MEDS: SODIUM CHLORIDE 0.9% 1,000 ML IV SCH ×2 (05:18→18:00)
[2017-05-04] MEDS: HYDROcodone-ACET 5/325MG TAB PO PRN ×3 (05:56→16:43)
[2017-05-04] MEDS: GABAPENTIN 300 MG CAP PO SCH ×3 (05:57→21:33)
[2017-05-04] MEDS: SUCRALFATE 1 GM TAB PO SCH ×4 (05:57→21:36)
[2017-05-04] MEDS: InsuLIN REG 1unit/0.01ml Soln (100units/ml) SC SCH ×4 (06:06→23:29)
[2017-05-04] MEDS: ACCU-CHEK COMFORT CURVE STRIP VI SCH ×4 (06:06→23:28)
[2017-05-04 06:34] LABS: Basophils # (auto) 0 uL; Basophils % (auto) 0.8 % (0.0-2.0); Eosinophils # (auto) 0.3 uL; Lymphocytes # (auto) 1.1 uL
[2017-05-04 06:41] LABS: Eosinophils % (auto) 5.1 % (0.0-7.0); Hematocrit 35.5 % (41.0-53.0); Hemoglobin 11.3 g/dL (13.5-17.5); Lymphocytes % (auto) 20.7 % (10.0-50.0); Mean Corpuscular Hemoglobin 25.4 pg (28.0-32.0); Mean Corpuscular Hgb Conc. 31.7 g/dL (32.0-36.0); Monocytes # (auto) 0.6 uL; Monocytes % (auto) 10.4 % (0.0-12.0); Neutrophils # (auto) 3.4 uL; Platelet Count (auto) 268 10^3/uL (140-450); Red Blood Cells 4.44 10^6/uL (4.5-5.90); Red Cell Distribution Width 17.5 % (11.8-14.3); White Blood Cell 5.3 10^3/uL (4.4-10.8)
[2017-05-04 06:46] LABS: BUN/Creatinine Ratio 16.1; Bilirubin, Total 0.5 mg/dL (0.2-1.0); Calcium 8.2 mg/dL (8.5-10.1); Potassium 3.8 mmol/L (3.5-5.1); Total Protein 7.5 g/dL (6.4-8.2)
[2017-05-04] MEDS: LISINOPRIL 10 MG TAB PO SCH (10:00)
[2017-05-04] MEDS: CARVEDILOL 12.5 MG TAB PO SCH ×2 (10:00→21:36)
[2017-05-04] MEDS: LACOSAMIDE 50 MG TAB PO SCH ×2 (10:34→21:34)
[2017-05-04] MEDS: PANTOPRAZOLE 40 MG TAB PO SCH (10:34)
[2017-05-04] MEDS: SERTRALINE HCL 50 MG TAB PO SCH (10:34)
[2017-05-04] MEDS: LEVETIRACETAM 500 MG TAB PO SCH ×2 (10:34→21:35)
[2017-05-04] MEDS: ALPRAZolam 0.5 MG TAB PO PRN ×2 (10:35→18:55)
[2017-05-04] MEDS: ENOXAPARIN SOD 40 MG/0.4 ML SYRINGE SC SCH (10:35)
[2017-05-04] MEDS: TEMAZEPAM 15 MG CAP PO PRN (21:34)
[2017-05-04] MEDS: ASCORBIC ACID 500 MG TAB PO SCH (21:36)
[2017-05-05] MEDS: HYDROcodone-ACET 5/325MG TAB PO PRN ×4 (00:58→18:12)
[2017-05-05] MEDS: ALPRAZolam 0.5 MG TAB PO PRN ×2 (03:01→11:21)
[2017-05-05 05:23] VITALS: BP 138/88
[2017-05-05] MEDS: GABAPENTIN 300 MG CAP PO SCH ×2 (05:31→14:00)
[2017-05-05] MEDS: ACCU-CHEK COMFORT CURVE STRIP VI SCH ×3 (05:32→18:12)
[2017-05-05] MEDS: InsuLIN REG 1unit/0.01ml Soln (100units/ml) SC SCH ×3 (05:38→18:00)
[2017-05-05] MEDS: SODIUM CHLORIDE 0.9% 1,000 ML IV SCH ×3 (05:39→19:05)
[2017-05-05] MEDS: SUCRALFATE 1 GM TAB PO SCH ×3 (06:06→18:12)
[2017-05-05 09:00] VITALS: BP 155/89
[2017-05-05] MEDS ORDERED: MULTIPLE VITAMIN TAB PO SCH (10:00)
[2017-05-05] MEDS: ENOXAPARIN SOD 40 MG/0.4 ML SYRINGE SC SCH (10:24)
[2017-05-05] MEDS: SERTRALINE HCL 50 MG TAB PO SCH (10:24)
[2017-05-05] MEDS: LACOSAMIDE 50 MG TAB PO SCH (10:24)
[2017-05-05] MEDS: LISINOPRIL 10 MG TAB PO SCH (10:25)
[2017-05-05] MEDS: PANTOPRAZOLE 40 MG TAB PO SCH (10:26)
[2017-05-05] MEDS: LEVETIRACETAM 500 MG TAB PO SCH (10:26)
[2017-05-05] MEDS: CARVEDILOL 12.5 MG TAB PO SCH (10:26)
[2017-05-05] MEDS: ASCORBIC ACID 500 MG TAB PO SCH (10:26)
[2017-05-05 13:00] VITALS: BP 147/59
[2017-05-05 17:31] VITALS: BP 140/75
== END 2017-05-05 19:40 | disposition home or self-care (01) | DRG 100 ==
LOC: ER 00:15 → TELE 00:16 → TELE-CENTR 14:58
PROVIDERS: ADMIT Nurse Practitioner; ATTEND Internal Medicine Pulmonary Disease
DX: G40.409 Other generalized epilepsy and epileptic syndromes, not intractable, without status epilepticus (principal); L89.94 Pressure ulcer of unspecified site, stage 4; N17.9 Acute kidney failure, unspecified; E11.22 Type 2 diabetes mellitus with diabetic chronic kidney disease; E11.42 Type 2 diabetes mellitus with diabetic polyneuropathy; N18.3 Chronic kidney disease, stage 3 (moderate); E44.1 Mild protein-calorie malnutrition; E78.5 Hyperlipidemia, unspecified; F32.9 Major depressive disorder, single episode, unspecified; F41.9 Anxiety disorder, unspecified; E86.0 Dehydration; J44.9 Chronic obstructive pulmonary disease, unspecified; R26.9 Unspecified abnormalities of gait and mobility; I12.9 Hypertensive chronic kidney disease with stage 1 through stage 4 chronic kidney disease, or unspecified chronic kidney disease; I25.2 Old myocardial infarction; Z80.3 Family history of malignant neoplasm of breast; Z82.49 Family history of ischemic heart disease and other diseases of the circulatory system; Z83.3 Family history of diabetes mellitus; Z87.442 Personal history of urinary calculi; Z90.49 Acquired absence of other specified parts of digestive tract; Z68.32 Body mass index [BMI] 32.0-32.9, adult; Z88.1 Allergy status to other antibiotic agents; Z88.2 Allergy status to sulfonamides; Z88.8 Allergy status to other drugs, medicaments and biological substances; Z79.899 Other long term (current) drug therapy
CPT/HCPCS: 36415; 70450; 80053; 81001; 82542; 82962; 85025; 87081; 93005; 96361; 96365; 96366; 97163; J1815; J7060